=== PATIENT | male | born 1935 | race Caucasian/White ===

== ENCOUNTER → 2023-12-05 | Outpatient (CLI) | payer MEDICARE ==
[2023-12-05 11:40] LABS: African American GFR (CKD) >90 (>60 ml/min/1.73 sqM); Blood Urea Nitrogen 21 mg/dL (9-20); Non-African American GFR(CKD) 80 (>60 ml/min/1.73 sqM)
--- NOTE | 2023-12-05 14:54 | CT ---
EXAMINATION TYPE: CT ChestAbdPelvis w con DATE OF EXAM: 12/05/2023 INDICATION: f/u blood ca COMPARISON: 05/31/2023 CT DLP: 1515.3 mGycm CONTRAST: Performed with Oral Contrast and with IV Contrast, patient injected with 100 mL of Isovue 370. TECHNIQUE: Axial images at 5 mm thick sections. Reconstructed images in the coronal plane. Delayed images through the kidneys. FINDINGS: CT CHEST: Portion of the thyroid visualized is normal. No suspicious lung nodules or focal infiltrates are present. Small bilateral pleural effusions are present. No enlarged mediastinal or hilar adenopathy is evident. The ascending aorta diameter at the level of the main pulmonary artery is 3.0 cm. The main pulmonary artery diameter at the bifurcation is 2.[address] ABDOMEN: Liver: Minimal fatty infiltration may be present. Spleen: Multiple scattered calcified granulomata within the spleen. Pancreas: Normal Adrenal glands: The adrenal glands are normal. Gallbladder: Gallstones are present. Kidneys: No masses are evident. No hydronephrosis is present. Small cortical renal cysts. Present. Delayed images were obtained through the kidneys. Small cortical renal cysts are better visualized o n the delayed images. Aorta: Vascular calcification is within the aorta. Inferior vena cava: Normal. CT PELVIS: Pelvis has limitation with beam hardening artifact from bilateral hip prostheses. Loops of bowel within the abdomen and pelvis are normal. There are loops of bowel which are incom pletely distended or lack oral contrast limiting their evaluation. Appendix: Not identified. No dilated tubular structure or inflammatory change evident. Urinary bladder: Normal with limited evaluation Genitourinary structures: Prostate is poorly visualized Osseous structures: No suspicious lytic or sclerotic lesions. Degenerative facet changes are within t he lumbar spine. There is a compression deformity of T10. Mild inferior posterior endplate impression on the thecal sac is present. Spinal canal stenosis is evident. Endplate spurring is also noted at t he L3-4 level. Some spinal canal stenosis through this level is likely present. Lymphadenopathy: No suspicious matted lymphadenopathy or enlarged lymph nodes evident. Previous peria ortic arch adenopathy appears diminished from comparison IMPRESSION: 1. Small bilateral pleural effusions. 2. Stable appearing compression deformity of T10. 3. No suspicious enlarged lymphadenopathy. [facility], Workstation: [facility], 12/05/2023 2:52 PM
== END | disposition home or self-care (01) ==
LOC: RADCTMAIN 10:42
PROVIDERS: ATTEND Internal Medicine Hematology & Oncology
CPT/HCPCS: 36415; 71260; 74177; 82565; 84520